=== PATIENT | female | born 2005 | race Hispanic/Latino ===

== ENCOUNTER 2023-04-05 13:31 | Emergency (ER) | payer OTHER, SELFPAY ==
[2023-04-05] MEDS ORDERED: Acetaminophen 500 MG TAB ONE (15:20)
[2023-04-05 15:24] LABS: SARS-CoV-2 NAA Rapid Test Not Detected (NotDetected)
== END 2023-04-05 15:55 | disposition home or self-care (01) ==
LOC: ERS 13:31
DX: O99.512 Diseases of the respiratory system complicating pregnancy, second trimester (principal); J10.1 Influenza due to other identified influenza virus with other respiratory manifestations; Z3A.22 22 weeks gestation of pregnancy
CPT/HCPCS: 99283